=== PATIENT | male | born 1965 | race Caucasian/White ===

== ENCOUNTER 2017-08-09 20:48 | Emergency (ER) | payer SELFPAY ==
[~2017-08-09] VITALS: Ht 175.3 cm; Wt 68.5 kg
[2017-08-09] MEDS ORDERED: LORazepam 2 MG/ML, 1ML ONE (21:28)
[2017-08-09] MEDS ORDERED: ONDANSETRON 2MG/ML, 2ML ONE (21:29)
[2017-08-09] MEDS ORDERED: LORazepam 2 MG/ML, 1ML IVPush ONE (21:30)
[2017-08-09] MEDS ORDERED: SODIUM CHLORIDE 0.9% 1,000ML IVBOLUS ONE (21:30)
[2017-08-09] MEDS ORDERED: SODIUM CHLORIDE FLUSH 10ML SYR IVF ONE (21:30)
[2017-08-09] MEDS ORDERED: ONDANSETRON 2MG/ML, 2ML IVPush ONE (21:30)
[2017-08-09] MEDS ORDERED: HYDROmorphone 1 MG/ML, 1ML ONE (21:30)
[2017-08-09] MEDS ORDERED: HYDROmorphone 1 MG/ML, 1ML IVPush PRN (21:30)
[2017-08-09 21:40] LABS: HEMATOCRIT 40.2 % (39.2-51.8); HEMOGLOBIN 13.8 g/dL (13.7-18.0); WHITE BLOOD COUNT 5.5 x10^3/uL (3.4-10)
[2017-08-09 21:52] LABS: ASPARTATE AMINO TRANSFERASE 40 U/L (15-37); BLOOD UREA NITROGEN 34 mg/dL (7-18)
[2017-08-09] MEDS ORDERED: OMNIPAQUE 350 MG/ML, 100ML BOTTLE ONE (22:23)
[2017-08-10 00:31] VITALS: BP 124/76
== END 2017-08-10 00:34 | disposition home or self-care (01) ==
LOC: ED 21:53 → UNDOADMIN 23:14 → EDIP 23:14 → ED 08-10 00:34
DX: R10.13 Epigastric pain (principal); F17.200 Nicotine dependence, unspecified, uncomplicated
CPT/HCPCS: 36415; 71010; 74177; 80053; 83605; 83690; 85025; 93005; 96361; 96374; 96375; 99285; J1170; J2060; J2405; J7030; Q9967

== ENCOUNTER 2019-05-31 15:56 | Emergency (ER) | payer MEDICAID ==
[~2019-05-31] VITALS: Ht 175.3 cm; Wt 68.0 kg
[2019-05-31 16:03] VITALS: BP 128/88
[2019-05-31] MEDS ORDERED: IBUPROFEN 600 MG TABLET PO ONE (17:00)
[2019-05-31] MEDS ORDERED: ACETAMINOPHEN 325 MG TABLET PO ONE (17:00)
[2019-05-31] MEDS ORDERED: IBUPROFEN 200 MG TABLET ONE (17:14)
[2019-05-31] MEDS ORDERED: ACETAMINOPHEN 325 MG TABLET ONE (17:14)
[2019-05-31] MEDS ORDERED: NEOSPORIN OINT. PKT 1 PACKET ONE (17:17)
[2019-06-07] MEDS ORDERED: LEVO25TA4 PO (07:48)
== END 2019-05-31 17:30 | disposition home or self-care (01) ==
LOC: ED 17:24
DX: S83.92XA Sprain of unspecified site of left knee, initial encounter (principal); M25.462 Effusion, left knee; W17.89XA Other fall from one level to another, initial encounter; Y93.89 Activity, other specified; Y92.410 Unspecified street and highway as the place of occurrence of the external cause; Y99.8 Other external cause status
CPT/HCPCS: 29505; 99283

== ENCOUNTER 2019-06-07 06:52 | Emergency (ER) | payer MEDICAID ==
[~2019-06-07] VITALS: Ht 175.3 cm; Wt 67.7 kg
[2019-06-07 07:31] VITALS: BP 149/96
== END 2019-06-07 08:54 | disposition home or self-care (01) ==
LOC: ED 07:44
DX: S93.412A Sprain of calcaneofibular ligament of left ankle, initial encounter (principal); F17.200 Nicotine dependence, unspecified, uncomplicated; W17.89XA Other fall from one level to another, initial encounter; Y93.89 Activity, other specified; Y92.89 Other specified places as the place of occurrence of the external cause; Y99.8 Other external cause status
CPT/HCPCS: 99283

== ENCOUNTER 2019-11-18 00:58 | Emergency (ER) | payer MEDICAID ==
[~2019-11-18] VITALS: Ht 175.3 cm; Wt 75.0 kg
[~2019-11-18 00:58] MED LIST: LEVO25TA4 PO
[2019-11-18 01:00] VITALS: BP 142/97
[2019-11-18] MEDS ORDERED: AMOXICILLIN 500 MG CAPSULE PO STA (01:05)
[2019-11-18] MEDS ORDERED: AMOXICILLIN 500 MG CAPSULE ONE (01:08)
[2019-11-18] MEDS ORDERED: IBUPROFEN 600 MG TABLET ONE (01:08)
[2019-11-18] MEDS ORDERED: HYDROcodone/APAP 5/325 TABLET ONE (01:09)
[2019-11-18] MEDS ORDERED: IBUPROFEN 200 MG TABLET PO ONE (01:30)
[2019-11-18] MEDS ORDERED: HYDROcodone/APAP 5/325 TABLET PO ONE (01:30)
== END 2019-11-18 01:19 | disposition home or self-care (01) ==
LOC: ED 01:00
DX: K02.9 Dental caries, unspecified (principal); F17.210 Nicotine dependence, cigarettes, uncomplicated
CPT/HCPCS: 99284

== ENCOUNTER 2020-10-30 22:55 | Emergency (ER) | payer SELFPAY ==
[~2020-10-30] VITALS: Ht 172.7 cm; Wt 68.8 kg
[2020-10-30 22:56] VITALS: BP 128/89
[2020-10-30] MEDS ORDERED: SILVER SULF. CRM 1%, 400GM TP ONE (23:30)
[2020-10-31] MEDS ORDERED: NEOSPORIN OINT. PKT 1 PACKET ONE ×2 (00:19→00:21)
== END 2020-10-31 00:56 | disposition home or self-care (01) ==
LOC: ED 10-31 00:51
DX: T24.202A Burn of second degree of unspecified site of left lower limb, except ankle and foot, initial encounter (principal); T24.201A Burn of second degree of unspecified site of right lower limb, except ankle and foot, initial encounter; T31.0 Burns involving less than 10% of body surface; F17.200 Nicotine dependence, unspecified, uncomplicated; X08.8XXA Exposure to other specified smoke, fire and flames, initial encounter; Y93.89 Activity, other specified; Y92.89 Other specified places as the place of occurrence of the external cause; Y99.8 Other external cause status
CPT/HCPCS: 16020; 99282